=== PATIENT | male | born 1985 | race Caucasian/White ===

== ENCOUNTER → 2016-08-14 | Outpatient (CLI) | payer MEDICAID | LOC: FIMAGING 15:48 | PROVIDERS: ATTEND Family Medicine | DX: Z11.1 Encounter for screening for respiratory tuberculosis (principal); R76.11 Nonspecific reaction to tuberculin skin test without active tuberculosis ==

== ENCOUNTER 2018-01-28 02:00 | Observation (INO) | payer OTHER, MEDICAID ==
--- NOTE | 2018-01-28 02:10 | EDPHY ---
H & P Time Seen by Provider: 01/28/18 02:09 HPI/ROS: HPI CHIEF COMPLAINT: Chest pain. Abdominal pain, leg pain. HISTORY OF PRESENT ILLNESS: This is a 32-year-old male, history of schizophrenia, presents emergency room with chest pain abdominal pain and leg pain bilaterally. Patient reports that about 45 min ago he woke up with pain in his chest goes across his chest he describes as burning. Does not go down his arm neck or back. Additionally reports some abdominal pain nausea and vomiting. Additionally reports bilateral leg pain. Patient denies drug use. Denies alcohol tobacco this evening. States the pain is 7/10 across his chest burning. Woke him from sleep. Of note this patient speaks Venezuelan. However he has declined captain airline pilot. Offered multiple times. States he can understand Emir[place] well not been speak Emirati well enough. Past Medical History: Schizophrenia. Past Surgical History: No recent surgery Social History: Denies drugs alcohol tobacco. Family History: Noncontributory. ROS REVIEW OF SYSTEMS: 10 Systems were reviewed and negative with the exception of the elements mentioned in the history of present illness. Exam Constitutional nontoxic, triage nursing summary reviewed, vital signs reviewed , awake/alert. Eyes normal conjunctivae and sclera, EOMI, PERRLA. HENT normal inspection, atraumatic, moist mucus membranes, no epistaxis, neck supple/ no meningismus, no raccoon eyes. Respiratory clear to auscultation bilaterally, normal breath sounds, no respiratory distress, no wheezing. Cardiovascular no rub on exam, rate normal, regular rhythm, no murmur, no edema , distal pulses normal. Gastrointestinal nontender palpation diffusely no peritoneal signs, no rebound , no guarding, normal bowel sounds, no distension, no pulsatile mass. Genitourinary no CVA tenderness. Musculoskeletal no midline vertebral tenderness, full range of motion, no calf swelling, no tenderness of extremities, no meningismus, good pulses, neurovascularly intact. Skin pink, warm, & dry, no rash, skin atraumatic. Neurologic awake, alert and oriented x 3, AAOx3, moves all 4 extremities equally, motor intact, sensory intact, CN II-XII intact, normal cerebellar, normal vision, normal speech. Psychiatric normal mood/affect. Heme/Lymph/Immune no lymphadenopathy. Differential diagnosis includes but is not limited to: ACS, atypical chest pain , pneumothorax, pneumonia, pulmonary embolism, aortic dissection, congestive heart failure, tumor, musculoskeletal pain, esophageal pain, GERD, peptic ulcer disease, pancreatitis Medical Decision Making: Plan for this patient IV establishment IV fluid bolus , full-dose aspirin, Toradol for pain control, basic blood work, EKG, chest x- ray, youth nutritional monitor, rule out acute coronary syndrome. Re-evaluation: EKG interpretation by me on record in [facility] system. Impression time of EKG 2:11 a.m., sinus rhythm rate of 87, diffuse ST elevation concerning for pericarditis. Will consult Cardiology. The EKG was reviewed by Dr. Caryn Castillo at 211am. Does not feel this is an acute ST-elevation DC. Agrees with current management treatment plan and evaluation. Recommends admission and echocardiogram to rule out pericarditis myocarditis. 0340: Patient re-evaluated this time. Denies chest pain at this time. Still complains of diffuse abdominal pain. On re-examination is abdomen mildly tender. Will proceed with CT scan abdomen pelvis with IV contrast of his abdominal pain. CT scan abdomen pelvis with IV contrast negative for acute inflammatory process. ED x-ray chest one view interpreted by myself. Negative for acute cardiopulmonary disease. EKG interpretation by me on record in [facility] system. Impression this is a repeat EKG time 4 5:00 a.m., sinus rhythm rate of 73, diffuse ST elevation. Possible pericarditis versus early Re-tamela. Plan for this patient is resting comfortably at this time. CT scan did not show any evidence of acute inflammatory process does show constipation. EKGs have been reviewed. Troponin x2 is negative. Plan for patient admission for further cardiac evaluation with echocardiogram. Rule out pericarditis and further evaluate chest pain. Source: Patient, EMS - Social History Smoking Status: Unknown if ever smoked Constitutional: Initial Vital Signs Temperature (C) 36.6 C 01/28/18 02:00 Heart Rate 90 01/28/18 02:00 Respiratory Rate 18 01/28/18 02:00 Blood Pressure 162/109 H 01/28/18 02:00 O2 Sat (%) 96 01/28/18 02:00 O2 Delivery Mode Room Air Allergies/Adverse Reactions: No Known Allergies Allergy (Unverified 01/28/18 02:30) Home Medications: Medication Instructions Recorded Ibuprofen [Motrin (*)] 600 mg PO TID #0 tab 01/28/18 Paliperidone [Paliperidone ER] 12 mg PO HS 01/28/18 metFORMIN HCL [Metformin HCl] 500 mg PO BID 01/28/18 Medical Decision Making - Data Points Laboratory Results: Laboratory Results 01/28/18 02:10 01/28/18 02:12 Medications Given: Discontinued Medications Acetaminophen (Tylenol) 650 mg PO Q4HRS PRN PRN Reason: Pain, Mild/Fever, Can Take PO Stop: 07/27/18 07:00 Last Admin: 01/28/18 08:43 Dose: 650 mg Aspirin Buffered (Aspirin Ec) 325 mg PO EDNOW ONE Stop: 01/28/18 02:17 Last Admin: 01/28/18 02:37 Dose: 325 mg Colchicine (Colchicine) 0.6 mg PO BID [facility] Stop: 07/27/18 11:44 Last Admin: 01/28/18 12:04 Dose: 0.6 mg Sodium Chloride (Ns) 1,000 mls @ 0 mls/hr IV EDNOW ONE; Wide Open PRN Reason: Protocol Stop: 01/28/18 02:13 Last Admin: 01/28/18 02:37 Dose: 1,000 mls Sodium Chloride (Ns) 1,000 mls @ 0 mls/hr IV ONCE ONE PRN Reason: Wide Open Stop: 01/28/18 03:30 Last Admin: 01/28/18 03:52 Dose: 1,000 mls Ibuprofen (Motrin) 600 mg PO TID [facility] Stop: 07/27/18 11:44 Last Admin: 01/28/18 12:04 Dose: 600 mg Insulin Human Lispro (Humalog Lispro) 0 unit SC TIDMEAL VIDAL PRN Reason: Protocol Stop: 07/27/18 11:59 Last Admin: 01/28/18 12:55 Dose: Not Given Ketorolac Tromethamine (Toradol) 15 mg IVP EDNOW ONE Stop: 01/28/18 02:18 Last Admin: 01/28/18 02:37 Dose: 15 mg Ondansetron HCl (Zofran) 4 mg IVP EDNOW ONE Stop: 01/28/18 03:08 Last Admin: 01/28/18 03:08 Dose: 4 mg Pneumococcal Polyvalent Vaccine (Pneumovax 23) 0.5 ml IM .ONCE ONE Stop: 01/28/18 08:29 Last Admin: 01/28/18 08:44 Dose: 0.5 ml Point of Care Test Results: Chemistry 01/28/18 01/28/18 04:11 02:19 POC Troponin I 0.00 ng/mL ng/mL 0.00 ng/mL ng/mL (0.00-0.08) (0.00-0.08) Departure - Departure Disposition: [facility] Inpatient Acute Clinical Impression: Abnormal EKG Chest pain Qualifiers: Chest pain type: unspecified Qualified Code(s): R07.9 - Chest pain, unspecified Condition: Good
[2018-01-28] MEDS ORDERED: NS 1,000 ML IV ONE ×2 (02:12→03:29)
[2018-01-28] MEDS ORDERED: ASPIRIN EC 325 MG TAB PO ONE (02:16)
[2018-01-28] MEDS ORDERED: KETOROLAC 15 MG/1 ML SDV IVP ONE (02:17)
[2018-01-28 02:25] LABS: PLATELET COUNT 287 10^3/uL (150-400)
[2018-01-28 02:33] LABS: INR 0.87 (0.83-1.16)
[2018-01-28] MEDS ORDERED: ONDANSETRON 4 MG/2 ML VIAL ONE (03:05)
[2018-01-28] MEDS ORDERED: ONDANSETRON 4 MG/2 ML VIAL IVP ONE (03:07)
[2018-01-28] MEDS ORDERED: IOPAMIDOL (ISOVUE-300) 100 ML BTL ONE (03:33)
[2018-01-28] MEDS ORDERED: ACETAMINOPHEN 325 MG TAB PO PRN (07:01)
[2018-01-28] MEDS ORDERED: ONDANSETRON DISINTEGRATING 4 MG TAB PO PRN (07:01)
[2018-01-28] MEDS ORDERED: diphenhydrAMINE 25 MG CAP PO PRN (07:01)
[2018-01-28] MEDS ORDERED: LORazepam 0.5 MG TAB PO PRN (07:01)
[2018-01-28] MEDS ORDERED: HYDROCODONE/APAP 5/325 TAB PO PRN (07:01)
[2018-01-28] MEDS ORDERED: ONDANSETRON 4 MG/2 ML VIAL IVP PRN (07:01)
[2018-01-28] MEDS ORDERED: NS 1,000 ML IV SCH (07:15)
[2018-01-28] MEDS ORDERED: KETOROLAC 15 MG/1 ML SDV IVP PRN (07:49)
--- NOTE | 2018-01-28 08:01 | CPEKG ---
Test Reason : OPEN Blood Pressure : / mmHG Vent. Rate : 073 BPM Atrial Rate : 074 BPM P-R Int : 158 ms QRS Dur : 106 ms QT Int : 398 ms P-R-T Axes : 025 042 038 degrees QTc Int : [address] elev, probable normal early repol pattern Confirmed by Yousuf Kasper ([id number]) on 01/28/2018 8:00:39 AM Referred By: Confirmed By:Yousuf Kasper
--- NOTE | 2018-01-28 08:01 | CPEKG ---
Test Reason : OPEN Blood Pressure : / mmHG Vent. Rate : 087 BPM Atrial Rate : 086 BPM P-R Int : 151 ms QRS Dur : 102 ms QT Int : 363 ms P-R-T Axes : 020 059 047 degrees QTc Int : [address] elevation suggests acute pericarditis Confirmed by Yousuf Kasper ([id number]) on 01/28/2018 8:00:39 AM Referred By: Confirmed By:Yousuf Kasper
[2018-01-28] MEDS ORDERED: PNEUMOCOCCAL 0.5ML VACCINE VIAL (PNEUMOVAX 23) IM ONE (08:28)
--- NOTE | 2018-01-28 09:32 | ECHO ---
[email or web address] [address] [address] Main: [phone] Fax: Transthoracic Echocardiogram Name: JESSICA DOWNING MR#: [id number] Study Date: 01/28/2018 Study Time: 07:43 AM Date of : 1985 Age: 32 year(s) Height: ( ) Weight: ( ) BSA: Gender: Male Examination: Echo Indication: Chest Pain, Pericarditis Image Quality: Adequate Contrast: Requested by: Deisy Burleson BP: 120 mmHg/87 mmHg Heart Rate: Rhythm: Indication: Chest Pain, Pericarditis Procedure Staff Foley Artist: Dayanna Leblanc [facility] Reading Physician: Bebeto Goodwin MD Requesting Provider: Conclusions: Normal size left ventricle. No LV hypertrophy. Normal global systolic LV function. EF is 61 %. No regional wall motion abnormality. Mild mitral valve regurgitation is present. The aortic valve is tri-leaflet. There is no significant aortic valve regurgitation. The tricuspid valve is normal in appearance and function. Mild tricuspid regurgitation is present. Trivial pulmonic valve regurgitation. Trivial pericardial effusion. Measurements: Chambers Valvular Assessment AV/MV Valvular Assessment TV/PV Normal Normal Normal Name Value Range Name Value Range Name Value Range Ao Eri (2D): 2.3 cm (1.4 cm-2.6 AV Vmax: 1.29 m/s (1 m/s-1.7 TR Vmax: 2.13 mm/s ( - ) cm) m/s) TR PGmax: 18 mmHg ( - ) IVSd (2D): 1.0 cm (0.6 cm-1.1 AV maxP mmHg ( - ) syst. PAP: 23 mmHg ( - ) cm) AV meanP mmHg ( - ) PV Vmax: 1.05 m/s (0.6 m/s-0.9 LVDd (2D): 4.0 cm (4.2 cm-5.9 MANI (VTI): 4.2 cm ( - ) m/s) cm) MV E Vmax: 0.93 m/s ( - ) PV PGmax: 4 mmHg ( - ) LVDs (2D): 2.5 cm (2.1 cm-4 MV A Vmax: 0.77 m/s ( - ) cm) MV E/A: 1.21 ( - ) LVPWd (2D): 1.0 cm (0.6 cm-1 cm) MV PHT: 0.072 s ( - ) LVOTd 2.1 cm 2.1 cm mm MVA (PHT): 3.1 s ( - ) LVEF (BP): 61 % (>=55 %) RVDd(2D): 3.0 cm (1.9 cm-3.8 cmmm) Patient: JESSICA DOWNING Study Date: 01/28/2018 Page 1 of 2 07:43 AM Continued Measurements: Chambers Valvular Assessment AV/MV Valvular Assessment TV/PV Name Value Name Value Name Value LADs: 3.5 cm MV DecTime: 239 m/s CVP (est.): 5 mmHg LADs Lon.8 cm MV E' Septal: 0.09 m/s LA Area: 14.9 cm2 MV E/E' Septal: 10.90 LA Volume: 33 ml MV E/E' Lateral: 9.60 Additional Vessels Name Value Ao Ascendin.5 cm Inferior Vena Cava: 1.3 cm Findings: Left Ventricle: Normal size left ventricle. No LV hypertrophy. Normal global systolic LV function. EF is 61 %. No regional wall motion abnormality. Normal diastolic LV function. Right Ventricle: Normal size right ventricle. Normal RV function. Left Atrium: The left atrium is normal in size. Right Atrium: The right atrium is normal in size. Mitral Valve: The mitral valve is normal in appearance and function. Mild mitral valve regurgitation is present. No mitral stenosis is present. Aortic Valve: The aortic valve is tri-leaflet. There is no significant aortic valve regurgitation. No aortic valve stenosis is present. Tricuspid Valve: The tricuspid valve is normal in appearance and function. Mild tricuspid regurgitation is present. The pulmonary artery pressure is normal. Right ventricular systolic pressure measures 23mmHg. Pulmonic Valve: The pulmonic valve is normal in appearance and function. Trivial pulmonic valve regurgitation. Aorta: The aorta is normal. Normal size aortic root measuring 2.3 cm. Normal size ascending aorta measuring 2.5 cm. IVC: The IVC is normal sized. Pericardium: Trivial pericardial effusion. Exam Comments: No height/weight available - patient speaks minimal south korean. (No Signature Object) Patient: JESSICA DOWNING Study Date: 01/28/2018 Page 2 of 2 07:43 AM [id number]
[2018-01-28] MEDS ORDERED: D50W 25 GM/50 ML SYR IVP PRN (09:40)
--- NOTE | 2018-01-28 11:27 | PDGENHP ---
History and Physical - Chief Complaint chest pain - History of Present Illness 32yo M with a history of schizophrenia, homelessness (living in senior living), diabetes presents with chest pain. He had 3 episodes of vomiting yesterday and some mild difficulty breathing. Woke up around 1am this morning with a sore throat. He then had some bad dreams and awoke a short time later with left sided chest pain which prompted him to come to the ED. It is unclear if this pain woke him from sleep. At that time he also had severe leg aches. His chest pain did not radiate and was not associated with diaphoresis, nausea, or dyspnea. It persisted for several hours but is now gone. He thinks the pain is pleuritic but no association with exertion or position. He hasn't had pain like this before and doesn't get symptoms when he works at a [employer]. In the ED, an ECG showed diffuse ST elevations. Cardiology (Dr Castillo) was called who thought his ECG was more consistent with pericarditis than STEMI. Repeat ECG was unchanged and troponin was negative. He was admitted for further work up and I evaluated him in the PCU. History Information - Allergies/Home Medication List Allergies/Adverse Reactions: No Known Allergies Allergy (Unverified 01/28/18 02:30) Home Medications: Paliperidone [Paliperidone ER] 12 mg PO HS 01/28/18 [Last Taken 01/27/18] metFORMIN HCL [Metformin HCl] 500 mg PO BID 01/28/18 [Last Taken 01/27/18] I have personally reviewed and updated: family history, medical history, social history, surgical history - Past Medical History Additional medical history: schizophrenia, non-insulin dependent diabetes - Surgical History Reports: no pertinent surgical hx - Family History Additional family history: father - diabetes, mother - of unknown illness - Social History Smoking Status: Former smoker Alcohol Use: None Drug Use: None Additional social history: Has been living in homeless senior living for last year. Came to [place] from [place] 15 years ago with his father, who is still alive and working in [place]. Works at a [employer]. Review of Systems Review of Systems: ROS: 10pt was reviewed & negative except for what was stated in HPI & below Physical Exam Physical Exam: Temp Pulse Resp BP Pulse Ox 36.7 C 94 18 126/73 H 96 01/28/18 08:33 01/28/18 08:33 01/28/18 08:33 01/28/18 08:33 01/28/18 08:33 Constitutional: no apparent distress, appears nourished, not in pain Eyes: PERRL, anicteric sclera, EOMI Ears, Nose, Mouth, Throat: moist mucous membranes, hearing normal, ears appear normal, no oral mucosal ulcers Cardiovascular: regular rate and rhythym, no murmur, rub, or gallop, No JVD, No edema Respiratory: no respiratory distress, no rales or rhonchi, clear to auscultation Gastrointestinal: normoactive bowel sounds, soft, non-tender abdomen, no palpable masses Genitourinary: no bladder fullness, no bladder tenderness Skin: warm, normal color, no rashes or abrasions, no fluctuance, no induration, No mottled Musculoskeletal: full muscle strength, no muscle tenderness, normal joint ROM, no joint effusions Neurologic: AAOx3, other (restless legs) Psychiatric: interacting appropriately Lab Data & Imaging Review 01/28/18 02:10 01/28/18 02:12 WBC 15.09 10^3/uL (3.80-9.50) H 01/28/18 02:10 RBC 5.19 10^6/uL (4.40-6.38) 01/28/18 02:10 Hgb 16.4 g/dL (13.7-17.5) 01/28/18 02:10 Hct 47.9 % (40.0-51.0) 01/28/18 02:10 MCV 92.3 fL (81.5-99.8) 01/28/18 02:10 MCH 31.6 pg (27.9-34.1) 01/28/18 02:10 MCHC 34.2 g/dL (32.4-36.7) 01/28/18 02:10 RDW 13.0 % (11.5-15.2) 01/28/18 02:10 Plt Count 287 10^3/uL (150-400) 01/28/18 02:10 MPV 10.2 fL (8.7-11.7) 01/28/18 02:10 Neut % (Auto) Not Reported 01/28/18 02:10 Lymph % (Auto) Not Reported 01/28/18 02:10 [place] % (Auto) Not Reported 01/28/18 02:10 Eos % (Auto) Not Reported 01/28/18 02:10 Baso % (Auto) Not Reported 01/28/18 02:10 Nucleat RBC Rel Count Not Reported 01/28/18 02:10 Absolute Neuts (auto) Not Reported 01/28/18 02:10 Absolute Lymphs (auto) Not Reported 01/28/18 02:10 Absolute Monos (auto) Not Reported 01/28/18 02:10 Absolute Eos (auto) Not Reported 01/28/18 02:10 Absolute Basos (auto) Not Reported 01/28/18 02:10 Absolute Nucleated RBC Not Reported 01/28/18 02:10 Immature Gran % Not Reported 01/28/18 02:10 Seg Neutrophils % 46.0 % 01/28/18 02:10 Band Neutrophils % 0.0 % 01/28/18 02:10 Lymphocytes % 27.0 % 01/28/18 02:10 Monocytes % 5.0 % 01/28/18 02:10 Eosinophils % 21.0 % 01/28/18 02:10 Basophils % 0.0 % 01/28/18 02:10 Metamyelocytes % 0.0 % 01/28/18 02:10 Myelocytes % 1.0 % 01/28/18 02:10 Promyelocytes % 0.0 % 01/28/18 02:10 Blast Cells % 0.0 % 01/28/18 02:10 Immature Gran # Not Reported 01/28/18 02:10 Absolute Seg Neuts 0.00 10^3/uL (1.70-6.50) L 01/28/18 02:10 Absolute Band Neuts 0.00 10^3/uL (0.00-0.70) 01/28/18 02:10 Absolute Lymphocytes 0.00 10^3/uL (1.00-3.00) L 01/28/18 02:10 Absolute Monocytes 0.00 10^3/uL (0.30-0.80) L 01/28/18 02:10 Absolute Eosinophils 0.00 10^3/uL (0.03-0.40) L 01/28/18 02:10 Absolute Basophils 0.00 10^3/uL (0.02-0.10) L 01/28/18 02:10 Absolute Metamyelocyte 0.00 10^3/mL (0.00-0.00) 01/28/18 02:10 Absolute Myelocytes 0.00 10^3/mL (0.00-0.00) 01/28/18 02:10 Absolute Promyelocytes 0.00 10^3/uL (0.00-0.00) 01/28/18 02:10 Absolute Plasma Cells 0.00 10^3/uL (0.00-0.00) 01/28/18 02:10 RBC/WBC/PLT Morphology NORMAL (NORMAL) 01/28/18 02:10 Absolute Blast Cells 0.00 10^3/uL (0.00-0.00) 01/28/18 02:10 Plasma Cells % 0.0 % 01/28/18 02:10 Platelet Estimate ADEQUATE (ADEQ) 01/28/18 02:10 PT 12.0 SEC (12.0-15.0) 01/28/18 02:10 INR 0.87 (0.83-1.16) 01/28/18 02:10 APTT 26.7 SEC (23.0-38.0) 01/28/18 02:10 Sodium 138 mEq/L (135-145) 01/28/18 02:12 Potassium 4.3 mEq/L (3.5-5.2) 01/28/18 02:12 Chloride 105 mEq/L (97-110) 01/28/18 02:12 Carbon Dioxide 23 mEq/l (22-31) 01/28/18 02:12 Anion Gap 10 mEq/L (6-14) 01/28/18 02:12 BUN 13 mg/dL (7-23) 01/28/18 02:12 Creatinine 0.8 mg/dL (0.7-1.3) 01/28/18 02:12 Estimated GFR > 60 01/28/18 02:12 Glucose 102 mg/dL (70-100) H 01/28/18 02:12 Calcium 9.4 mg/dL (8.5-10.4) 01/28/18 02:12 Magnesium 1.9 mg/dL (1.6-2.3) 01/28/18 02:12 Total Bilirubin 0.3 mg/dL (0.1-1.4) 01/28/18 02:12 Conjugated Bilirubin 0.2 mg/dL (0.0-0.5) 01/28/18 02:12 Unconjugated Bilirubin 0.1 mg/dL (0.0-1.1) 01/28/18 02:12 AST 32 IU/L (17-59) 01/28/18 02:12 ALT 34 IU/L (21-72) 01/28/18 02:12 Alkaline Phosphatase 135 IU/L (38-126) H 01/28/18 02:12 POC Troponin I 0.00 ng/mL (0.00-0.08) 01/28/18 04:11 NT-Pro-B Natriuret Pep < 11 pg/mL (0-125) 01/28/18 02:12 Total Protein 7.5 g/dL (6.3-8.2) 01/28/18 02:12 Albumin 4.4 g/dL (3.5-5.0) 01/28/18 02:12 Lipase 72 IU/L (23-300) 01/28/18 02:12 Urine Color YELLOW 01/28/18 03:15 Urine Appearance CLEAR 01/28/18 03:15 Urine pH 6.0 (5.0-7.5) 01/28/18 03:15 Ur Specific [place] 1.017 (1.002-1.030) 01/28/18 03:15 Urine Protein NEGATIVE (NEGATIVE) 01/28/18 03:15 Urine Ketones NEGATIVE (NEGATIVE) 01/28/18 03:15 Urine Blood NEGATIVE (NEGATIVE) 01/28/18 03:15 Urine Nitrate NEGATIVE (NEGATIVE) 01/28/18 03:15 Urine Bilirubin NEGATIVE (NEGATIVE) 01/28/18 03:15 Urine Urobilinogen NEGATIVE EU (0.2-1.0) 01/28/18 03:15 Ur Leukocyte Esterase NEGATIVE (NEGATIVE) 01/28/18 03:15 Urine Glucose NEGATIVE (NEGATIVE) 01/28/18 03:15 Urine Opiates Screen NEGATIVE (NEGATIVE) 01/28/18 03:15 Urine Barbiturates NEGATIVE (NEGATIVE) 01/28/18 03:15 Ur Phencyclidine Scrn NEGATIVE (NEGATIVE) 01/28/18 03:15 Ur Amphetamine Screen NEGATIVE (NEGATIVE) 01/28/18 03:15 U Benzodiazepines Scrn NEGATIVE (NEGATIVE) 01/28/18 03:15 Urine Cocaine Screen NEGATIVE (NEGATIVE) 01/28/18 03:15 U Marijuana (THC) Screen NEGATIVE (NEGATIVE) 01/28/18 03:15 Ethyl Alcohol < 10 mg/dL (0-10) 01/28/18 02:10 Visualized and Interpreted imaging results: Yes Interpretation: CXR: normal heart size, no effusion or infiltrate (interp by me) . Abdominal CT: moderate constipation, no acute findings Visualized and Interpreted EKG results: Yes EKG additional interpertation: ECG: sinus rhythm, ST elevations diffusely, no other ST-T wave changes Assessment & Plan Assessment: 32yo M with a history of schizophrenia, homelessness (living in senior living), diabetes presents with chest pain found to have diffuse ST elevations on ECG. Plan: 1. Acute chest pain with diffuse ST elevations on ECG: Pain now resolved. Suspect pericarditis much moreso than ACS. - TTE with only trivial pericardial effusion, no other abnormalities - Trial anti-inflammatories - No ischemic eval for now - Cardiology consulted in ED, Donna Hughes is seeing this AM 2. Leukocytosis: Reactive 2/2 above. 3. Diabetes: Takes oral meds at home but unsure which ones. - SSI with regular BG checks 4. Schizophrenia: Currently denies AH/VH. Sees a psychiatrist as outpatient. VTE ppx: SCDs Code: full Diet:regular Dispo: Admit under observation. Potentially discharge later today pending cardiology recommendations
[2018-01-28 11:30] VITALS: BP 113/63
[2018-01-28] MEDS ORDERED: COLCHICINE 0.6 MG CAP/TAB PO SCH (11:45)
[2018-01-28] MEDS ORDERED: IBUPROFEN 600 MG TAB PO SCH (11:45)
[2018-01-28] MEDS ORDERED: INSULIN LISPRO 100 UNIT/ML SC SCH (12:00)
--- NOTE | 2018-01-28 12:57 | GCON ---
CARDIAC CONSULTATION DATE OF CONSULTATION: 01/28/2018 CHIEF COMPLAINT: Chest pain. HISTORY OF PRESENT ILLNESS: The patient is a 32-year-old male with a history of schizophrenia, who p resented to the hospital with chest pain. He has a history of terrible dreams and last night had a b ad dream and woke up with significant chest pain. This was associated with shortness of breath. He does note that his chest discomfort seemed to be worse when lying down. On admission to the hospital , he was given a dose of Toradol with a significant improvement in his chest discomfort. He has been monitored on telemetry and has remained in normal sinus rhythm. His troponins have remained negativ e. His EKG is consistent with pericarditis. An echocardiogram revealed normal systolic function wit h a trivial pericardial effusion, as well as mild mitral regurgitation and tricuspid regurgitation. PAST MEDICAL HISTORY: Schizophrenia. PAST SURGICAL HISTORY: Noncontributory. FAMILY HISTORY: Negative for coronary artery disease. SOCIAL HISTORY: He denies any drug or excessive alcohol use. He denies any tobacco use. HOME MEDICATIONS: Metformin 500 mg b.i.d. and paliperidone 12 mg at bedtime. ALLERGIES: No known drug allergies. REVIEW OF SYSTEMS: He did complain of abdominal and leg discomfort, as well as chest discomfort. Ot herwise, a 12-point review of systems is negative, except for what is stated in the H and P. PHYSICAL EXAMINATION: GENERAL: Patient appears in no acute distress. VITALS: Blood pressure 113/6 3, heart rate 84, oxygen saturation 96% on room air, afebrile. EYES: Conjunctivae normal. LUNGS: Clear to auscultation. No wheezes, rhonchi, or crackles auscultated. CARDIAC: Regular rate and rhy thm, without any murmurs, rubs, or gallops heard while in the supine position. The patient did sit u p and lean forward, and a murmur was auscultated. ABDOMEN: Soft, nontender, nondistended. Bowel so unds are present. EXTREMITIES: Palpable pulses bilaterally, without any evidence of edema. NEUROLOG IC: Nonfocal. PSYCHIATRIC: Mood and affect appropriate. SKIN: No obvious rashes or ecchymosis id entified. LABORATORY: Troponin negative x2. BMP within normal limits. Alkaline phosphatase 135. CBC: WBC 1 5.09. Toxicology negative. Urinalysis negative. DIAGNOSTIC STUDIES: EKG suggests diffuse ST elevation with upsloping of his NE interval and AVR, ind icating probable pericarditis. His echocardiogram revealed preserved LV function, without any wall m otion abnormalities. He has a trivial pericardial effusion with mild mitral and tricuspid regurgitat ion. ASSESSMENT: The patient is a 32-year-old male who presents with mild pericarditis. PLAN: The patient presented with significant chest discomfort, which was relieved with Toradol. His EKG is consistent with pericarditis. He is currently chest pain free. His echocardiogram showed a trivial pericardial effusion without any significant abnormalities. His troponins have been negative . At this point, I think it is safe for him to be discharged on NSAIDs. I would recommend 600 mg of ibuprofen t.i.d. for the next 3-4 days. If he has recurrent chest discomfort, his course of NSAIDs can be prolonged. He should not do any physical activity for the next 7 days. He can then resume [facility] physical activity and increase as tolerated. /[id number]/MODL
--- NOTE | 2018-01-28 14:29 | ASMTCMCOM ---
CM Note CM Note Notes: Pts case discussed in tx rounds. Pt is a 32 y/o man admitted for chest pain, abdominal pain and vomiting. Pt is latvian speaking only. Pt has schizophrenia and homeless. CM can offer to reserve a nursing home bed when medically stable. CM available for changes. Plan: Independent Date Signed: 01/28/2018 02:28 PM Electronically Signed By:MARY ANNE Blanc
--- NOTE | 2018-01-28 14:54 | PDDCSUM ---
Discharge Summary Discharge Summary: Date of Admission: 01/28/2018 Date of Discharge: 01/28/2018 Consultants: cardiology Studies: 1. TTE Discharge Diagnoses: 1. Acute chest pain likely due to acute pericarditis 2. Leukocytosis, reactive 3. Type 2 diabetes 4. Schizophrenia 5. Homelessness Brief Hospital Course: 32yo M with a history of schizophrenia, homelessness (living in long-term), diabetes presented with chest pain found to have diffuse ST elevations on ECG. Serial troponins were negative. A TTE was performed which showed a trivial pericardial effusion but no other abnormalities. Cardiology saw the patient in consultation and it was felt that his chest pain was due to pericarditis. His symptoms improved with anti-inflammatories prior to discharge. He was instructed to take ibuprofen and follow up with his primary care doctor. Medications: Please refer to EMR for complete list. I instructed him to take ibuprofen 800mg TID for 7 days. Follow Up Plan: 1. To see PCP in 1 week to assess symptoms Physical Exam: Vitals and telemetry reviewed. Alert and oriented, RRR without m/ r/g, lungs clear, abdomen soft and nt, no rashes.
--- NOTE | 2018-01-28 14:58 | ASMTLACE ---
LACE Length of stay for Answers: Less than 1 day current admission Acuity / Level of Answers: No Care: Did the patient have an inpatient admission? Comorbidities - select Answers: Diabetes (uncontrolled or all that apply controlled) # of Emergency department Answers: 1-2 visits in the last 6 months Social determinants Answers: Mental health diagnosis (anxiety, depression, pers onality disorders, etc.) Score: 5 Date Signed: 01/28/2018 02:57 PM Electronically Signed By:MARY ANNE Blanc
--- NOTE | 2018-01-28 15:01 | ASMTCMCOM ---
CM Note CM Note Notes: CM spoke to Dr. Esparza and Beth, RN. Pt is being dc'd today. CM made pt a follow up appointment at the [facility] for 02/04/18 at 9:20AM w/ Kay Aguirre NP. CM provided pt w/ the appointment. Pt is not interested in a longterm reservation. CM provided pt w/ a bus pass. CM available for changes. Plan: Independent Date Signed: 01/28/2018 03:01 PM Electronically Signed By:MARY ANNE Blanc
== END 2018-01-28 16:19 | disposition home or self-care (01) ==
LOC: EDUNIT# → F2W 05:21
PROVIDERS: ADMIT Family Medicine; ATTEND Internal Medicine
DX: R07.89 Other chest pain (principal); R93.1 Abnormal findings on diagnostic imaging of heart and coronary circulation; D72.829 Elevated white blood cell count, unspecified; E11.9 Type 2 diabetes mellitus without complications; F20.9 Schizophrenia, unspecified; E86.0 Dehydration; Z59.0 Homelessness; Z23 Encounter for immunization; Z87.891 Personal history of nicotine dependence
CPT/HCPCS: 71045; 74177; 90732; 93005; 93306; G0009; G0378; J1885; J2405; Q9967; 80305; 84484-PO; 96374; G0480